=== PATIENT | female | born 1990 | race Two or more races ===

== ENCOUNTER 2020-01-07 20:09 | Emergency (ER) | payer MEDICAID ==
[~2020-01-07] VITALS: Ht 167.6 cm; Wt 68.0 kg
[2020-01-07 23:46] LABS: *BARBITURATES SCREEN URINE NEGATIVE (NEGATIVE); *BENZODIAZEPINES SCREEN URINE NEGATIVE (NEGATIVE); *COCAINE SCREEN URINE NEGATIVE (NEGATIVE)
[2020-01-07 23:47] LABS: METHADONE URINE SCREEN NEGATIVE (NEGATIVE); OPIATES URINE SCREEN NEGATIVE (NEGATIVE); PHENCYCLIDINE URINE SCREEN NEGATIVE (NEGATIVE)
[2020-01-07 23:48] LABS: *AMPHETAMINES SCREEN URINE NEGATIVE (NEGATIVE)
[2020-01-07 23:55] LABS: CANNABINOID URINE SCREEN PRESUMTIVE POSITIVE (NEGATIVE)
[2020-01-08 00:03] LABS: HEMATOCRIT. 37.6 % (36.0-48.0); HEMOGLOBIN. 12.8 g/dL (12.0-16.0); MEAN CORPUSCULAR HEMOGLOBIN 30.9 pg (28.0-32.0); MEAN CORPUSCULAR VOLUME 90.9 fL (81.0-99.0); MEAN PLATELET VOLUME 8.9 fl (7.4-10.4); PLATELET 256 x1000/uL (130-400); RED BLOOD CELL COUNT 4.13 mill/uL (4.2-5.4); RED CELL DISTRIBUTION WIDTH 12.1 % (11.6-14.6)
[2020-01-08 00:12] LABS: CHLORIDE 109 mEq/L (98-107)
[2020-01-08 00:18] LABS: HCG SCREEN NEGATIVE
[2020-01-08 00:20] LABS: ETHANOL BLOOD < 10 mg/dL
[2020-01-08 00:53] LABS: PLATELET ESTIMATE NORMAL
[2020-01-08] MEDS ORDERED: CEFTRIAXONE 1 G PREMIX 50 ML IV ONE (01:00)
[2020-01-08 01:24] LABS: CLARITY URINE CLEAR (CLEAR); COLOR URINE YELLOW (YELLOW); KETONES URINE NEGATIVE (NEGATIVE); LEUKOCYTE ESTERASE URINE NEGATIVE (NEGATIVE); NITRITE URINE NEGATIVE (NEGATIVE); OCCULT BLOOD URINE NEGATIVE (NEGATIVE); PROTEIN URINE NEGATIVE (NEGATIVE); SPECIFIC GRAVITY URINE 1.011 (1.005-1.030); UROBILINOGEN URINE 0.2 E.U./dL (0.2-1.0)
[2020-01-08 01:36] VITALS: BP 107/56
== END 2020-01-08 02:24 | disposition home or self-care (01) ==
LOC: ER 20:09
DX: R56.9 Unspecified convulsions (principal); F12.929 Cannabis use, unspecified with intoxication, unspecified; D72.829 Elevated white blood cell count, unspecified; F41.9 Anxiety disorder, unspecified; F43.10 Post-traumatic stress disorder, unspecified
CPT/HCPCS: 36415; 70450; 71045; 80053; 80305; 80320; 81003; 81025; 82962; 84703; 85025; 87040; 93005; 96365; 99285; J0696; G0480